=== PATIENT | male | born 1975 | race Caucasian/White ===

== ENCOUNTER 2025-03-07 14:02 | Emergency (ER) | payer OTHER, SELFPAY ==
[2025-03-07 14:05] VITALS: BP 115/86
[2025-03-07 14:25] LABS: % Basophils 0.2 % (0-2); % Eosinophils 1.4 % (0-6); % Immature Granulocytes 0.6 % (0-0.5); % Neutrophils 68.8 % (42.2-75.2); Absolute Eosinophils 0.1 10^3/uL (0-0.7); Absolute Immature Granulocytes 0.1 10^3/uL (0-0.05); Absolute Monocytes 0.8 10^3/uL (0.1-0.6); Absolute Neutrophils 6.7 10^3/uL (1.4-6.5); Hematocrit 50.5 % (39.0-52.0); Mean Corp Hgb Conc. 35.6 g/dL (33.0-37.0); Mean Corpuscular Volume 89.9 fL (80.0-94.0); Mean Platelet Volume 10.3 fL (7.4-10.4); Nucleated Red Blood Cells % 0 % (-); Platelet Count 178 10^3/uL (130-400); Red Blood Cell Count 5.62 10^6/uL (4.70-6.10); White Blood Cell Count 9.7 10^3/uL (4.8-10.8)
[2025-03-07 14:36] LABS: ALT (SGPT) 46 U/L (0-50); AST (SGOT) 25 U/L (17-59); Albumin 4.3 g/dl (3.5-5.0); Alkaline Phosphatase 48 U/L (38-126); Blood Urea Nitrogen 23 mg/dl (9-20); Calcium 9.7 mg/dl (8.4-10.2); Carbon Dioxide 24 mmol/L (22-30); Chloride 110 mmol/L (98-107); Glucose 93 mg/dl (70-99); Potassium 4.8 mmol/L (3.5-5.1); Sodium 140 mmol/L (135-145); Total Bilirubin 0.5 mg/dl (0.2-1.3); Total Protein 7.2 g/dl (6.3-8.2); eGFR > 60.00
--- NOTE | 2025-03-07 16:58 | ED.GENMED ---
History of Present Illness
General
Chief Complaint: Fatigue
Source: patient
Exam Limitations: none
Time Seen by Provider: 03/07/25 16:39
History of Present Illness
History of Present Illness:
49-year-old male with only past medical history of severe sleep apnea wears CPAP at night presents with severe fatigue worsening over the past several months. He is short of breath with any exertion. 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
complete a task without sitting on a bucket. He denies leg swelling or calf pain. No recent travel or surgery. He denies chest pain. No fever. He smokes but is not drink alcohol. He denies use of any other drugs. He denies a fever or rash.
No headaches. No other complaints at this time
Phy Exam
Physical Exam
Physical Exam:
General: Well-developed male no acute respiratory distress
HEENT: Normocephalic atraumatic
Heart: Regular rate and rhythm
Lungs: Clear no wheeze
Abdomen is soft nontender nondistended
Extremities: Mild pitting edema bilateral lower extremities
Skin is warm no rash
Course
Orders/Labs/Results
Orders:
Orders
03/07/25 14:16
Alcohol Urgent
Complete Blood Count/With Diff Urgent
Comprehensive Metabolic Panel Urgent
Lyme Progressive Urgent
Comment: ADD ON
TSH Reflex To Free T4 Urgent
Comment: ADD ON
03/07/25 16:41
Add On- LAB Urgent
Tests Added?: lyme progressive, tsh refelx to t4
03/07/25 16:57
Electrocardiogram (*1) Urgent
Reason for Study: Shortness of Breath
EKG- Treatment ONCE
03/07/25 16:58
Add On- LAB Urgent
Tests Added?: alcohol
03/07/25 17:[address] Non Medication Order As Directed
Physician Order: Please do ambulatory pulse ox
Above order entered?: Yes
03/07/25 17:10
D-Dimer Urgent
NT-proBNP Urgent
Troponin I Urgent
03/07/25 18:02
ABG [Arterial Blood Gas] Urgent
%Oxygen/Room Air: room air
03/07/25 19:18
CR Chest - 2 Views Urgent
Comment:
Reason For Exam: sob
Abnormal Lab Results
03/07/25 03/07/25
14:16 18:02
MCH 32.0 H pg
(27.0-31.0)
Abs Immat Gran (auto) 0.1 H 10^3/uL
(0-0.05)
Absolute Neuts (auto) 6.7 H 10^3/uL
(1.4-6.5)
Absolute Monos (auto) 0.8 H 10^3/uL
(0.1-0.6)
Immature Gran % 0.6 H %
(0-0.5)
pO2 80 L mmHg
(83-108)
ABG O2 Sat (Measured) 98.2 H %
(94-98)
Chloride 110 H mmol/L
(98-107)
BUN 23 H mg/dl
(9-20)
03/07/25 14:16
03/07/25 14:16
Vital Signs
Initial and Last Documented VS:
Initial Vital Signs
Temp Pulse Resp BP Pulse Ox
97.7 F 84 16 115/86 97
03/07/25 14:05 03/07/25 14:05 03/07/25 14:05 03/07/25 14:05 03/07/25 14:05
Last Documented Vital Signs
Temp Pulse Resp BP Pulse Ox
97.7 F 68 24 115/86 95
03/07/25 14:05 03/07/25 17:45 03/07/25 17:45 03/07/25 14:05 03/07/25 17:45
MDM/Problems Addressed
Differential Diagnosis Includes:
Fatigue. Differential is large consider anemia versus electrolyte abnormality versus underlying lung disease or cardiac issues. Will check for Lyme. Troponin EKG BNP pending. D-dimer ordered as well secondary to the shortness of breath with
exertion.
*Critical Care Note
Total Time (30-74mins, 75-104mins- exclusive of procedures): Not Applicable
Update Note
Update Note:
Workup here without any significant findings. Patient is quite dyspneic on exertion. Cardiac workup including troponin and BNP were normal chest x-ray showed no obvious acute findings. Discussed with patient potential admission for further workup
potential echocardiogram but he declines admission at this time. He will follow-up as an outpatient.
ED Attending Note
-
Portions of this chart may have been created with voice recognition software.� Occasional wrong word or��sound alike� substitutions may have occurred due to the inherent limitations of voice recognition software.
Discharge Plan
Departure
Patient Disposition: Home (Routine Discharge)
Date of Disposition: 03/07/25
Time of Disposition: 20:30
Patient with high blood pressure during this ER visit?: No
Discharge Problem:
Fatigue
Instructions: Shortness of breath, Chest Pain DCA Follow Up
Referrals:
UNKNOWN - PT DOES,NOT KNOW [Family Provider] -
Activity Restrictions/Additional Instructions:
Please return here for worsening symptoms. Consider following up with cardiology for further evaluation. Keep your GI appointment as scheduled
Interventions
Interventions:
*Risk Screen - Suicide Last Done: 03/07/25 14:11
*General Assessment Last Done: 03/07/25 14:11
*Neglect/Abuse Screening Last Done: 03/07/25 14:11
Discharge Date and Time
Print Language: TURKISH
[2025-03-07 17:14] VITALS: BMI 33.2
[2025-03-07 17:43] LABS: Alcohol None Detected
[2025-03-07 17:47] LABS: NT-proBNP < 20.0 pg/ml; Troponin I < 0.012 ng/ml
[2025-03-07 18:00] VITALS: BP 139/91
[2025-03-07 18:09] LABS: B.E. -0.3 mmol/L; HCO3 24.1 mmol/L (21-28); O2 Saturation % 98.2 % (94-98); PCO2 38 mmHg (35-48); PO2 80 mmHg (83-108); pH 7.41 (7.35-7.45)
[2025-03-07 18:19] LABS: TSH Reflex To Free T4 1.62 uIU/ml (0.47-4.68)
== END 2025-03-07 21:52 | disposition home or self-care (01) ==
LOC: EMR 14:02
PROVIDERS: Emergency Medicine; Physician Assistant; EMERGENCY PHYSICIAN Emergency Medicine
DX: R53.83 Other fatigue (principal); G47.30 Sleep apnea, unspecified; F17.200 Nicotine dependence, unspecified, uncomplicated
CPT/HCPCS: 99283; 71046; 80053; 82077; 82805; 83880; 84443; 84484; 85025; 85379; 86618; 93005